=== PATIENT | male | born 1990 | race Caucasian/White ===

== ENCOUNTER → 2019-07-17 | Outpatient (REF) | payer OTHER | LOC: M LAB REF 17:24 | PROVIDERS: ATTEND Surgery | DX: D23.5 Other benign neoplasm of skin of trunk (principal) ==

== ENCOUNTER → 2022-11-13 | Outpatient (REF) | payer BC ==
[2022-11-13 17:32] LABS: C REACTIVE PROTEIN QUANTITATIV < 0.40 MG/DL (<1.0)
[2022-11-13 17:34] LABS: IMMUNOGLOBULIN A 218.5 MG/DL (40-350)
== END ==
LOC: M LAB REF 16:40
PROVIDERS: ATTEND Internal Medicine
DX: R19.7 Diarrhea, unspecified (principal); L40.9 Psoriasis, unspecified

== ENCOUNTER → 2022-11-16 | Outpatient (REF) | payer BC | LOC: M LAB REF 10:21 | PROVIDERS: ATTEND Internal Medicine | DX: L40.9 Psoriasis, unspecified (principal); R19.7 Diarrhea, unspecified ==

== ENCOUNTER → 2025-05-25 | Outpatient (REF) | payer OTHER | LOC: M LAB REF 12:08 | PROVIDERS: ATTEND Internal Medicine | DX: Z82.49 Family history of ischemic heart disease and other diseases of the circulatory system (principal) ==